=== PATIENT | female | born 2000 | race Two or more races ===

== ENCOUNTER 2021-03-24 15:46 | Emergency (ER) | payer SELFPAY ==
[~2021-03-24] VITALS: Ht 165.1 cm; Wt 63.5 kg
[2021-03-24 15:50] VITALS: BP 108/51
== END 2021-03-24 21:37 | disposition home or self-care (01) ==
LOC: ER 15:46
DX: M79.671 Pain in right foot (principal); F17.210 Nicotine dependence, cigarettes, uncomplicated; F12.10 Cannabis abuse, uncomplicated
CPT/HCPCS: 73630

== ENCOUNTER 2021-06-26 13:51 | Emergency (ER) | payer SELFPAY ==
[~2021-06-26] VITALS: Ht 162.6 cm; Wt 68.0 kg
[2021-06-26 13:56] VITALS: BP 116/77
[2021-06-26] MEDS ORDERED: ONDANSETRON HCL 4 MG/2 ML VIAL IV ONE (14:15)
[2021-06-26] MEDS ORDERED: FAMOTIDINE (10MG/ML) 2ML VL IV ONE (14:15)
[2021-06-26] MEDS ORDERED: ALUM & MAG HYDROX-SIMETH LIQ(MAALOX) 30 ML PO ONE (14:15)
[2021-06-26] MEDS ORDERED: LIDOCAINE VISCOUS 2% 15ML UD PO ONE (14:15)
[2021-06-26 14:36] LABS: Basophils # (auto) 0 10 ^3/uL (0-0.2); Basophils % (auto) 0.2 % (0.0-2.0); Eosinophils # (auto) 0 10 ^3/uL (0-0.8); Hematocrit 41.5 % (36.0-46.0); Hemoglobin 14.1 g/dL (12.2-16.2); Lymphocytes # (auto) 0.7 10 ^3/uL (0.4-5.4); Lymphocytes % (auto) 4.6 % (10.0-50.0); Mean Corpuscular Hgb Conc. 34.1 g/dL (32.0-36.0); Mean Corpuscular Volume 90.9 fL (80.0-100.0); Monocytes # (auto) 0.5 10 ^3/uL (0-1.3); Monocytes % (auto) 3.2 % (0.0-12.0); Neutrophils # (auto) 13.9 10 ^3/uL (1.6-8.6); Red Blood Cells 4.57 10^6/uL (4.0-5.20); Red Cell Distribution Width 12.4 % (11.8-14.3); White Blood Cell 15.2 10^3/uL (4.4-10.8)
[2021-06-26 14:54] LABS: Albumin 4.4 g/dL (3.4-5.0); Calcium 9.4 mg/dL (8.5-10.1); Potassium 3.4 mmol/L (3.5-5.1)
[2021-06-26 14:58] LABS: BUN/Creatinine Ratio 17.2; Bilirubin, Total 0.7 mg/dL (0.2-1.0); Total Protein 8.4 g/dL (6.4-8.2)
[2021-06-26 15:03] LABS: Urine Bacteria NONE SEEN /hpf (None Seen); Urine Blood Negative /uL (Negative); Urine Mucus FEW (None Seen); Urine Specific Gravity 1.032 (1.001-1.035); Urine WBC 1 /hpf (0 - 5)
[2021-06-26] MEDS ORDERED: IOHEXOL 300 MG/ML 100ML BOTTLE IJ ONE (15:37)
[2021-06-26 15:40] LABS: Lactic Acid w/Reflex 2.5 mmol/L (0.4-2.0)
== END 2021-06-26 18:52 | disposition left against medical advice (07) ==
LOC: ER 13:51
DX: R10.84 Generalized abdominal pain (principal); R11.2 Nausea with vomiting, unspecified; F17.210 Nicotine dependence, cigarettes, uncomplicated
CPT/HCPCS: 36415; 80053; 81001; 81025; 83605; 83690; 85025

== ENCOUNTER 2022-02-20 07:08 | Emergency (ER) | payer BC ==
[~2022-02-20] VITALS: Ht 162.6 cm; Wt 63.9 kg
[2022-02-20 08:02] VITALS: BP 126/63
[2022-02-20 08:11] LABS: Basophils # (auto) 0 10 ^3/uL (0-0.2); Basophils % (auto) 0.1 % (0.0-2.0); Eosinophils # (auto) 0 10 ^3/uL (0-0.8); Hemoglobin 14.4 g/dL (12.2-16.2); Lymphocytes # (auto) 0.7 10 ^3/uL (0.4-5.4); Lymphocytes % (auto) 5.2 % (10.0-50.0); Mean Corpuscular Hemoglobin 31.4 pg (28.0-32.0); Mean Corpuscular Hgb Conc. 34.4 g/dL (32.0-36.0); Mean Corpuscular Volume 91.5 fL (80.0-100.0); Monocytes # (auto) 0.3 10 ^3/uL (0-1.3); Monocytes % (auto) 2.1 % (0.0-12.0); Neutrophils # (auto) 12.9 10 ^3/uL (1.6-8.6); Neutrophils % (auto) 92.6 % (37.0-80.0); Red Blood Cells 4.59 10^6/uL (4.0-5.20); Red Cell Distribution Width 12.4 % (11.8-14.3); White Blood Cell 13.9 10^3/uL (4.4-10.8)
[2022-02-20] MEDS ORDERED: ONDANSETRON HCL 4 MG/2 ML VIAL IV ONE (08:30)
[2022-02-20] MEDS ORDERED: SODIUM CHLORIDE 0.9% 1,000 ML IV ONE ×2 (08:30→09:30)
[2022-02-20] MEDS ORDERED: diphenhdrAMINE HCL 50 MG/1 ML VL IV ONE (08:45)
[2022-02-20 08:47] LABS: Urine Bacteria FEW /hpf (None Seen); Urine Blood Negative /uL (Negative); Urine Hyaline Cast FEW /lpf (0 - 2); Urine Mucus MANY (None Seen); Urine Specific Gravity 1.029 (1.001-1.035); Urine WBC 5 /hpf (0 - 5)
[2022-02-20 08:48] LABS: Albumin 4.7 g/dL (3.4-5.0); Calcium 9.4 mg/dL (8.5-10.1); Potassium 3.9 mmol/L (3.5-5.1)
[2022-02-20 08:54] LABS: BUN/Creatinine Ratio 16.7; Bilirubin, Total 0.7 mg/dL (0.2-1.0); Total Protein 7.7 g/dL (6.4-8.2)
[2022-02-20 08:59] LABS: Alcohol, Urine < 3.0 mg/dL (0-10); Amphetamine Screen, Urine NEGATIVE (NEGATIVE); Barbiturate Scree,Urine NEGATIVE (NEGATIVE); Benzodiazephine Screen, Urine NEGATIVE (NEGATIVE); Cannabinoid Screen, Urine POSITIVE (NEGATIVE); Cocaine Screen, Urine NEGATIVE (NEGATIVE); Phencyclidine Screen, Urine NEGATIVE (NEGATIVE)
[2022-02-20 09:04] LABS: Opiate Scree,Urine NEGATIVE (NEGATIVE)
[2022-02-20] MEDS ORDERED: DICY10CA PO (11:20)
[2022-02-20] MEDS ORDERED: ONDA-144 PO (11:20)
[2022-02-21] MEDS ORDERED: CEPH-510 PO (01:43)
== END 2022-02-20 11:24 | disposition home or self-care (01) ==
LOC: ER 07:08
DX: O21.1 Hyperemesis gravidarum with metabolic disturbance (principal); F17.210 Nicotine dependence, cigarettes, uncomplicated; F12.90 Cannabis use, unspecified, uncomplicated; Z3A.01 Less than 8 weeks gestation of pregnancy
CPT/HCPCS: 36415; 76801; 76817; 80053; 80307; 81001; 84702; 85025; 96361; 96374; 96375; 99285; J1200; J2405; J7050

== ENCOUNTER 2022-02-21 00:21 | Emergency (ER) | payer BC ==
[~2022-02-21] VITALS: Ht 162.6 cm; Wt 67.0 kg
[~2022-02-21 00:21] MED LIST: DICY10CA PO; ONDA-144 PO
[2022-02-21 00:33] VITALS: BP 129/69
[2022-02-21 01:00] LABS: Basophils # (auto) 0.1 10 ^3/uL (0-0.2); Basophils % (auto) 0.4 % (0.0-2.0); Eosinophils # (auto) 0.2 10 ^3/uL (0-0.8); Eosinophils % (auto) 1.1 % (0.0-7.0); Hematocrit 40.4 % (36.0-46.0); Hemoglobin 13.1 g/dL (12.2-16.2); Lymphocytes # (auto) 2.2 10 ^3/uL (0.4-5.4); Lymphocytes % (auto) 15.3 % (10.0-50.0); Mean Corpuscular Hemoglobin 30.3 pg (28.0-32.0); Mean Corpuscular Hgb Conc. 32.4 g/dL (32.0-36.0); Mean Corpuscular Volume 93.4 fL (80.0-100.0); Monocytes # (auto) 1.2 10 ^3/uL (0-1.3); Monocytes % (auto) 8.6 % (0.0-12.0); Neutrophils # (auto) 10.6 10 ^3/uL (1.6-8.6); Neutrophils % (auto) 74.6 % (37.0-80.0); Red Blood Cells 4.33 10^6/uL (4.0-5.20); Red Cell Distribution Width 12.2 % (11.8-14.3); White Blood Cell 14.1 10^3/uL (4.4-10.8)
[2022-02-21] MEDS ORDERED: SODIUM CHLORIDE 0.9% 1,000 ML IVB ONE (01:15)
[2022-02-21] MEDS ORDERED: PROMETHAZINE HCL 25 MG/ML 1ML IV ONE (01:15)
[2022-02-21] MEDS ORDERED: SODIUM CHLORIDE 0.9% 1,000 ML IV ONE (01:15)
[2022-02-21 01:23] LABS: Albumin 4.1 g/dL (3.4-5.0); BUN/Creatinine Ratio 14.3; Calcium 8.8 mg/dL (8.5-10.1); Potassium 3.6 mmol/L (3.5-5.1)
[2022-02-21 01:26] LABS: Bilirubin, Total 0.4 mg/dL (0.2-1.0); Total Protein 6.9 g/dL (6.4-8.2)
[2022-02-21] MEDS ORDERED: CEPH-510 PO (01:43)
== END 2022-02-21 05:01 | disposition home or self-care (01) ==
LOC: ER 00:21
DX: O21.0 Mild hyperemesis gravidarum (principal); R10.2 Pelvic and perineal pain; D72.829 Elevated white blood cell count, unspecified; F17.210 Nicotine dependence, cigarettes, uncomplicated; F12.90 Cannabis use, unspecified, uncomplicated; Z79.899 Other long term (current) drug therapy; Z3A.01 Less than 8 weeks gestation of pregnancy
CPT/HCPCS: 36415; 80053; 84702; 85025; 99283; J7030

== ENCOUNTER 2022-02-21 21:15 | Inpatient (IN) | payer BC ==
[~2022-02-21] VITALS: Ht 162.6 cm; Wt 67.2 kg
[~2022-02-21 21:15] MED LIST changes: +CEPH-510 PO
[2022-02-21] MEDS ORDERED: SODIUM CHLORIDE 0.9% 1,000 ML IV ONE (21:45)
[2022-02-21] MEDS ORDERED: MORPHINE SULFATE 4 MG/ML SYR/VIAL IV ONE (22:00)
[2022-02-21] MEDS ORDERED: ONDANSETRON HCL 4 MG/2 ML VIAL IV ONE (22:00)
[2022-02-21 22:27] LABS: Basophils # (auto) 0 10 ^3/uL (0-0.2); Basophils % (auto) 0.3 % (0.0-2.0); Eosinophils # (auto) 0.1 10 ^3/uL (0-0.8); Eosinophils % (auto) 0.5 % (0.0-7.0); Hemoglobin 12.5 g/dL (12.2-16.2); Lymphocytes # (auto) 1.4 10 ^3/uL (0.4-5.4); Lymphocytes % (auto) 11.6 % (10.0-50.0); Mean Corpuscular Hemoglobin 30.5 pg (28.0-32.0); Mean Corpuscular Volume 92.5 fL (80.0-100.0); Monocytes # (auto) 0.9 10 ^3/uL (0-1.3); Monocytes % (auto) 7.7 % (0.0-12.0); Neutrophils # (auto) 9.5 10 ^3/uL (1.6-8.6); Neutrophils % (auto) 79.9 % (37.0-80.0); Red Blood Cells 4.11 10^6/uL (4.0-5.20); Red Cell Distribution Width 12.2 % (11.8-14.3); White Blood Cell 11.9 10^3/uL (4.4-10.8)
[2022-02-21 22:43] LABS: Calcium 8.1 mg/dL (8.5-10.1); Chloride 110 mmol/L (98-107); Potassium 3.9 mmol/L (3.5-5.1); Sodium 139 mmol/L (136-145)
[2022-02-21 22:48] LABS: Urine Bacteria FEW /hpf (None Seen); Urine Blood Negative /uL (Negative); Urine Mucus FEW (None Seen); Urine Specific Gravity 1.027 (1.001-1.035); Urine WBC 12 /hpf (0 - 5)
[2022-02-21 22:48] LABS: Alanine Aminotransferase 13 U/L (13-56); Albumin 3.9 g/dL (3.4-5.0); Alkaline Phosphatase 52 U/L (45-117); Anion Gap 10 (5-15); Aspartate Aminotransferase 13 U/L (15-37); BUN/Creatinine Ratio 15.7; Bilirubin, Total 0.6 mg/dL (0.2-1.0); Blood Urea Nitrogen 8 mg/dL (7-18); CRP High Sensitivity < 0.02 mg/dL (< 0.3); Carbon Dioxide 19 mmol/L (21-32); GFR African American 191 mL/min; GFR Non-African American 157 mL/min; Glucose 92 mg/dL (74-106); Lipase 86 U/L (73-393); Total Protein 6.6 g/dL (6.4-8.2)
[2022-02-22] MEDS ORDERED: ACETAMINOPHEN 325 MG TAB PO ONE (00:45)
[2022-02-22] MEDS ORDERED: DICYCLOMINE HCL 10 MG CAP PO ONE (00:45)
[2022-02-22] MEDS ORDERED: ONDANSETRON HCL 4 MG/2 ML VIAL IV ONE (01:15)
[2022-02-22] MEDS ORDERED: PROMETHAZINE HCL 25 MG/ML 1ML IV ONE (04:45)
[2022-02-22] MEDS ORDERED: PYRIDOXINE HCL 50 MG TAB PO ONE (04:45)
[2022-02-22] MEDS: LACTATED RINGER'S 1,000 ML IV SCH ×3 (08:45→23:30)
[2022-02-22] MEDS: ceFAZolin 1GM/50ML 50 ML IV SCH ×3 (08:57→22:00)
[2022-02-22] MEDS ORDERED: ONDANSETRON HCL 4 MG/2 ML VIAL IV PRN (21:00)
[2022-02-22] MEDS: PROMETHAZINE HCL 25 MG/ML 1ML IV PRN (21:15)
[2022-02-22 22:30] VITALS: BP 111/62
[2022-02-22 23:33] VITALS: BP 111/62
[2022-02-23] VITALS (7 sets, daily range): BP systolic 103–116; BP diastolic 61–71
[2022-02-23] MEDS: ceFAZolin 1GM/50ML 50 ML IV SCH ×3 (05:59→21:46)
[2022-02-23 06:14] LABS: Basophils # (auto) 0.1 10 ^3/uL (0-0.2); Basophils % (auto) 0.8 % (0.0-2.0); Eosinophils # (auto) 0.2 10 ^3/uL (0-0.8); Eosinophils % (auto) 1.7 % (0.0-7.0); Hematocrit 39.2 % (36.0-46.0); Hemoglobin 12.7 g/dL (12.2-16.2); Lymphocytes # (auto) 2.5 10 ^3/uL (0.4-5.4); Lymphocytes % (auto) 22.7 % (10.0-50.0); Mean Corpuscular Hemoglobin 30.2 pg (28.0-32.0); Mean Corpuscular Hgb Conc. 32.5 g/dL (32.0-36.0); Mean Corpuscular Volume 93.1 fL (80.0-100.0); Monocytes % (auto) 9.3 % (0.0-12.0); Neutrophils # (auto) 7.4 10 ^3/uL (1.6-8.6); Neutrophils % (auto) 65.5 % (37.0-80.0); Nucleated Red Blood Cells % 0.1 %; Red Blood Cells 4.21 10^6/uL (4.0-5.20); Red Cell Distribution Width 12.3 % (11.8-14.3); White Blood Cell 11.2 10^3/uL (4.4-10.8)
[2022-02-23 06:34] LABS: Calcium 8.7 mg/dL (8.5-10.1); Potassium 3.6 mmol/L (3.5-5.1)
[2022-02-23 06:42] LABS: BUN/Creatinine Ratio 12.8
[2022-02-23] MEDS: LACTATED RINGER'S 1,000 ML IV SCH ×3 (08:08→13:28)
[2022-02-23] MEDS: PROMETHAZINE HCL 25 MG/ML 1ML IV PRN (21:05)
[2022-02-24] MEDS: LACTATED RINGER'S 1,000 ML IV SCH ×2 (01:04→07:46)
[2022-02-24 05:00] VITALS: BP 124/80
[2022-02-24] MEDS: ceFAZolin 1GM/50ML 50 ML IV SCH ×2 (06:06→14:18)
[2022-02-24 09:00] VITALS: BP 104/52
[2022-02-24] MEDS ORDERED: PROM25TA5 PO (10:24)
[2022-02-24] MEDS ORDERED: CEPH-510 PO (10:26)
[2022-02-24 12:46] VITALS: BP 101/58
[2022-02-24 13:00] VITALS: BP 101/58
== END 2022-02-24 15:00 | disposition home or self-care (01) | DRG 832 ==
LOC: ER 21:17 → OVERFLOW 02-22 09:31 → WEST WING 02-22 23:02 → OVERFLOW 02-23 09:00 → WEST WING 02-23 09:05
PROVIDERS: ADMIT Registered Nurse; ATTEND Family Medicine
DX: O21.0 Mild hyperemesis gravidarum (principal); K51.90 Ulcerative colitis, unspecified, without complications; N39.0 Urinary tract infection, site not specified; O23.41 Unspecified infection of urinary tract in pregnancy, first trimester; O99.611 Diseases of the digestive system complicating pregnancy, first trimester; Z20.822 Contact with and (suspected) exposure to COVID-19; E86.0 Dehydration; O99.281 Endocrine, nutritional and metabolic diseases complicating pregnancy, first trimester; Z3A.01 Less than 8 weeks gestation of pregnancy
CPT/HCPCS: 36415; 80048; 80053; 81001; 83690; 84702; 85025; 85652; 86141; 86900; 86901; 87040; 87086; 87426; 96361; 96374; 96375; G0378; J0690; J2405